=== PATIENT | female | born 1960 | race Caucasian/White ===

== ENCOUNTER → 2017-12-10 12:20 | Outpatient (CLI) | payer OTHER, SELFPAY ==
[2017-12-10 12:50] LABS: Add Manual Diff / Slide Review NO; Basophils Percent Auto 0.7 % (0-2); Eosinophils Percent Auto 3.4 % (2-4); Hematocrit 38.2 % (36-46); Hemoglobin 13.2 g/dL (12.0-16.0); Lymphocytes Percent Auto 29.1 % (25-40); Mean Corpuscular HGB Conc 34.5 % (30-36); Mean Corpuscular Hemoglobin 30.4 PG (26-34); Mean Corpuscular Volume 88.2 fL (80-100); Monocytes Percent Auto 10.2 % (3-14); Neutrophils Absolute Auto 3800 /uL (3000-5900); Neutrophils Percent Auto 56.6 % (50-75); Platelet Count 303 X10^3/uL (150-400); Red Blood Cell Count 4.33 X10^6/uL (4.0-5.2); Red Cell Distribution Width 12.6 % (11.6-14.8); White Blood Cell Count 6.6 X10^3/uL (4.5-11.0)
[2017-12-10 13:06] LABS: Alanine Aminotransferase 34 IU/L (9-52); Albumin 4.5 g/dL (3.5-5.0); Albumin Globulin Ratio 1.5 (1.0-2.8); Alkaline Phosphatase 69 U/L (38-126); Aspartate Aminotransferase 23 IU/L (14-36); BUN Creatinine Ratio 24.3 (6-22); Bilirubin Total 0.7 mg/dL (0.2-1.3); Blood Urea Nitrogen 17 mg/dL (7-17); Calcium 9.6 mg/dL (8.4-10.2); Carbon Dioxide 26 mmol/L (22-32); Chloride 107 mmol/L (98-107); Cholesterol 184 mg/dL (140-199); Estimated Glomerular Filt Rate > 60.0 mL/min (>60); Globulin 3.1 g/dL (1.7-4.1); Glucose 119 mg/dL (70-100); HDL Cholesterol 40 mg/dL (40-60); HEMOLYSIS < 15 (0-50); LDL Cholesterol Calculated 105 mg/dL (<100); Potassium 4.1 mmol/L (3.4-5.1); Sodium 145 mmol/L (137-145); Total Protein 7.6 g/dL (6.3-8.2); Triglycerides 194 mg/dL (35-150)
[2017-12-10 13:09] LABS: Hemoglobin A1C% w Est Avg Glu 5.8 % (4.0-6.0)
[2017-12-10 13:48] LABS: Thyroid Stimulating Hormone < 0.02 uIU/mL (0.47-4.68)
[2017-12-10 14:10] LABS: Creatinine Urine Random 51.2 mg/dL
[2017-12-10 14:18] LABS: Microalbumi Creatinin Ratio Ur 11.7 ug/mg CR (<30); Microalbumin Urine Random < 0.6 mg/dL (0-1.6)
== END ==
PROVIDERS: Family Provider Physician Assistant; PCP Physician Assistant; Visit Provider Physician Assistant
DX: I10 Essential (primary) hypertension (principal); E78.5 Hyperlipidemia, unspecified; E11.9 Type 2 diabetes mellitus without complications; E03.9 Hypothyroidism, unspecified
CPT/HCPCS: 36415; 80053; 80061; 82043; 82570; 83036; 84439; 84443; 85025

== ENCOUNTER → 2017-12-16 14:18 | Outpatient (CLI) | payer OTHER, SELFPAY ==
--- NOTE | 2017-12-16 | DI.MG.S_ITS ---
BILATERAL DIGITAL SCREENING MAMMOGRAM 3D/2D WITH CAD: 12/16/2017 CLINICAL: Routine screening. Comparison is made to exams dated: 11/26/2016 mammogram, 09/19/2015 mammogram, and 09/11/2014 mammogram - [facility]. There are scattered fibroglandular elements in both breasts. Current study was also evaluated with a Computer Aided Detection (CAD) system. There is architectural distortion in the right breast at 11 o'clock middle depth. No other significant masses, calcifications, or other findings are seen in either breast. IMPRESSION: INCOMPLETE: NEEDS ADDITIONAL IMAGING EVALUATION The architectural distortion in the right breast is indeterminate. Additional views with possible ultrasound are recommended. This exam was interpreted at Station ID: [id number]. NOTE: For mammograms, a report in lay terms will be sent to the patient. Approximately 15% of breast malignancies will not be visualized mammographically. In the management of a palpable breast mass, a negative mammogram must not discourage biopsy of a clinically suspicious lesion. Electronically Signed By: Joy cross/igor:12/16/2017 15:10:13 letter sent: Additional Imaging Needed ACR BI-RADS Category 0: Incomplete 3340F
== END ==
PROVIDERS: Family Provider Physician Assistant; PCP Physician Assistant; Visit Provider Physician Assistant
DX: Z12.31 Encounter for screening mammogram for malignant neoplasm of breast (principal)
CPT/HCPCS: 77063; 77067

== ENCOUNTER → 2018-01-13 10:00 | Outpatient (CLI) | payer OTHER, SELFPAY ==
--- NOTE | 2018-01-13 | DI.MG.S_ITS ---
UNILATERAL RIGHT DIGITAL DIAGNOSTIC MAMMOGRAM 3D/2D WITH ADDITIONAL VIEWS: 01/13/2018 CLINICAL: Additional evaluation requested from prior study. Comparison is made to exams dated: 12/16/2017 mammogram, 11/26/2016 mammogram, and 09/19/2015 mammogram - [facility]. There are scattered fibroglandular elements in right breast. Previously identified architectural distortion in the right breast at 11 o'clock middle depth on comparison screening mammograms persists with additional views. There is a stable 2.0 cm oval circumscribed mass in lower inner right breast at middle depth. No other significant masses, calcifications, or other findings are seen in the breast. IMPRESSION: INCOMPLETE: NEEDS ADDITIONAL IMAGING EVALUATION Previously identified architectural distortion in the right breast at 11 o'clock middle depth on comparison screening mammograms persists with additional views. A targeted ultrasound is recommended for further evaluation, and will be performed immediately following this exam. This exam was interpreted at Station ID: [id number]. NOTE: For mammograms, a report in lay terms will be sent to the patient. Approximately 15% of breast malignancies will not be visualized mammographically. In the management of a palpable breast mass, a negative mammogram must not discourage biopsy of a clinically suspicious lesion. Electronically Signed By: Luther Tadeo M.D. ecl/:01/13/2018 10:57:19 letter sent: Additional Imaging Needed ACR BI-RADS Category 0: Incomplete 3340F
--- NOTE | 2018-01-13 10:02 | DI.US.S_ITS ---
LIMITED ULTRASOUND OF RIGHT BREAST: 01/13/2018 CLINICAL: Patient returns today to evaluate an architectural distortion in the right breast. Comparison is made to exams dated: 01/13/2018 mammogram, 12/16/2017 mammogram, 11/26/2016 mammogram, 09/19/2015 mammogram, and 09/11/2014 mammogram - . Targeted real-time grayscale and Doppler ultrasound of the right breast upper outer quadrant was performed. There is no ultraasound mass or abnormality to correlate with the previously identified architectural distortion in the right breast at 11 o'clock middle depth on comparison screening mammograms that persisted with additional views. IMPRESSION: SUSPICIOUS OF MALIGNANCY No ultrasound correlate identified for the 3.0 cm area of architectual distortion in the right breast at 11 o'clock position middle depth. This is at intermediate suspicion for malignancy. As there is no ultrasound correlate, a stereotactic biopsy is recommended. These results and recommendations were discussed with the patient at the time of the exam by the Radiologist Dr. Feliz Simpson in person. This exam was interpreted at Station ID: [id number]. Electronically Signed By: Luther Tadeo M.D. ecl/:01/13/2018 11:01:47 letter sent: Biopsy Required Ultrasound BI-RADS: 4b Suspicious abnormality - intermediate suspicion of malignancy
== END ==
PROVIDERS: Family Provider Physician Assistant; PCP Physician Assistant; Visit Provider Physician Assistant
DX: R92.8 Other abnormal and inconclusive findings on diagnostic imaging of breast (principal); N63.11 Unspecified lump in the right breast, upper outer quadrant
CPT/HCPCS: 76642; 77065; G0279

== ENCOUNTER → 2018-01-20 15:19 | Outpatient (CLI) | payer OTHER, SELFPAY ==
[2018-01-20 16:54] LABS: Thyroid Stimulating Hormone 0.05 uIU/mL (0.47-4.68)
== END ==
PROVIDERS: PCP Physician Assistant; Visit Provider Physician Assistant
DX: E03.9 Hypothyroidism, unspecified (principal)
CPT/HCPCS: 36415; 84443

== ENCOUNTER → 2018-03-06 16:29 | Outpatient (CLI) | payer OTHER, SELFPAY | PROVIDERS: Family Provider Physician Assistant; PCP Physician Assistant; Visit Provider Physician Assistant | DX: E03.9 Hypothyroidism, unspecified (principal); R79.89 Other specified abnormal findings of blood chemistry | CPT/HCPCS: 36415; 84443 ==

== ENCOUNTER → 2018-07-12 14:43 | Outpatient (CLI) | payer OTHER, SELFPAY ==
--- NOTE | 2018-07-12 14:45 | DI.US.S_ITS ---
ULTRASOUND OF RIGHT BREAST: 07/12/2018 CLINICAL: 6 month follow-up of the right breast. Comparison is made to exams dated: 07/12/2018 mammogram, 01/13/2018 ultrasound, 01/13/2018 mammogram, 12/16/2017 mammogram, 11/26/2016 mammogram, and 09/19/2015 mammogram - [facility]. Color flow ultrasound of the right breast was performed on the areas of interest. Henriquez scale images of the real-time examination were reviewed. IMPRESSION: PROBABLY BENIGN There is no sonographic abnormality seen in the right breast to correspond with the possible architectural distortion in the upper outer quadrant. A follow-up right mammogram and an ultrasound in 6 months is recommended to demonstrate stability. This exam was interpreted at Station ID: [id number]. Electronically Signed By: Joy cross/:07/12/2018 16:53:29 letter sent: Followup Recommended Ultrasound BI-RADS: 3 Probably benign
--- NOTE | 2018-07-12 14:45 | DI.MG.S_ITS ---
UNILATERAL RIGHT DIGITAL DIAGNOSTIC MAMMOGRAM 3D/2D SHORT-TERM FOLLOW-UP: 07/12/2018 CLINICAL: Patient returns for a 6 month follow up of the right breast. Comparison is made to exams dated: 01/13/2018 mammogram, 12/16/2017 mammogram, and 11/26/2016 mammogram - [facility]. There are scattered fibroglandular elements in right breast. The architectural distortion in the right breast at 11 o'clock middle depth is unchanged when compared with the prior mammograms dated 12/16/17 and 01/13/18. No other significant masses or calcifications are seen in the breast. IMPRESSION: INCOMPLETE: NEEDS ADDITIONAL IMAGING EVALUATION The stable architectural distortion in the right breast is indeterminate. A targeted ultrasound of the right breast is recommended and will be performed immediately following this exam. This exam was interpreted at Station ID: [id number]. NOTE: For mammograms, a report in lay terms will be sent to the patient. Approximately 15% of breast malignancies will not be visualized mammographically. In the management of a palpable breast mass, a negative mammogram must not discourage biopsy of a clinically suspicious lesion. Electronically Signed By: Joy Pierce M.D. lk/:07/12/2018 16:49:34 ACR BI-RADS Category 0: Incomplete 3340F
== END ==
PROVIDERS: Family Provider Physician Assistant; PCP Physician Assistant; Visit Provider Family Medicine
DX: R92.8 Other abnormal and inconclusive findings on diagnostic imaging of breast (principal)
CPT/HCPCS: 76642; 77065; G0279

== ENCOUNTER → 2019-01-19 10:32 | Outpatient (CLI) | payer OTHER, SELFPAY ==
[2019-01-19 11:10] LABS: Hemoglobin A1C% w Est Avg Glu 5.9 % (4.0-6.0)
[2019-01-19 11:17] LABS: Alanine Aminotransferase 30 IU/L (<35); Albumin Globulin Ratio 1.7 (1.0-2.8); Alkaline Phosphatase 67 U/L (38-126); Aspartate Aminotransferase 31 IU/L (14-36); Bilirubin Total 0.9 mg/dL (0.2-1.3); Blood Urea Nitrogen 21 mg/dL (7-17); Calcium 9.8 mg/dL (8.4-10.2); Carbon Dioxide 24 mmol/L (22-32); Chloride 103 mmol/L (98-107); Cholesterol 218 mg/dL (140-199); Estimated Glomerular Filt Rate > 60.0 mL/min (>60); Glucose 137 mg/dL (70-100); HDL Cholesterol 41 mg/dL (40-60); HEMOLYSIS < 15 (0-50); LDL Cholesterol Calculated 131 mg/dL (<100); Potassium 4.1 mmol/L (3.4-5.1); Sodium 140 mmol/L (137-145); Triglycerides 229 mg/dL (35-150)
[2019-01-19 12:03] LABS: Thyroid Stimulating Hormone 4.15 uIU/mL (0.47-4.68)
[2019-01-19 14:10] LABS: Creatinine Urine Random 72.3 mg/dL
[2019-01-19 14:15] LABS: Microalbumi Creatinin Ratio Ur 8.2 ug/mg CR (<30); Microalbumin Urine Random < 0.6 mg/dL (0-1.6)
== END ==
PROVIDERS: PCP Physician Assistant; Visit Provider Physician Assistant
DX: E03.9 Hypothyroidism, unspecified (principal); E78.5 Hyperlipidemia, unspecified; I10 Essential (primary) hypertension; R73.01 Impaired fasting glucose
CPT/HCPCS: 36415; 80053; 80061; 82043; 82570; 83036; 84443

== ENCOUNTER → 2019-02-09 10:13 | Outpatient (CLI) | payer OTHER, SELFPAY ==
--- NOTE | 2019-02-09 10:14 | DI.US.S_ITS ---
LIMITED ULTRASOUND OF RIGHT BREAST: 02/09/2019 CLINICAL: 6 month follow-up. Comparison is made to exams dated: 02/09/2019 mammogram, 07/12/2018 ultrasound, 07/12/2018 mammogram, 01/13/2018 ultrasound, and 01/13/2018 mammogram - . Color flow and real-time ultrasound of the right breast upper outer quadrant were performed. Henriquez scale images of the real-time examination were reviewed. There is no ultrasound mass or abnormality to correlate with the previously identified architectural distortion in the right breast at 11 o'clock middle depth described on comparison mammograms dating back to at least 12/16/17. IMPRESSION: PROBABLY BENIGN There is no ultrasound mass or abnormality to correlate with the previously identified architectural distortion in the right breast at 11 o'clock middle depth described on comparison mammograms dating back to at least 12/16/17. A follow-up diagnostic mammogram (with possible ultrasound if indicated) in 6 months is recommended to demonstrate continued stability. The patient is advised to monitor her breasts and to return sooner for re-evaluation should she feel anything grow or change. This exam was interpreted at Station ID: [id number]. Electronically Signed By: Luther Tadeo M.D. ecl/:02/09/2019 15:01:40 letter sent: Followup Recommended Ultrasound BI-RADS: 3 Probably benign
--- NOTE | 2019-02-09 10:14 | DI.MG.S_ITS ---
BILATERAL DIGITAL DIAGNOSTIC MAMMOGRAM 3D/2D SHORT-TERM FOLLOW-UP: 02/09/2019 CLINICAL: Patient returns for 12 month follow up of right breast, due for bilateral exam. Comparison is made to exams dated: 07/12/2018 mammogram, 01/13/2018 mammogram, and 12/16/2017 mammogram - [facility]. There are scattered fibroglandular elements in both breasts. Previously identified architectural distortion in the right breast at 11 o'clock middle depth remains stable in appearance when compared with prior comparison mammograms of 07/12/18, 01/13/18, and 12/16/17. There is a 2.0 cm oval circumscribed mass in lower inner right breast at middle depth which remains stable in appearance when compared with prior comparison mammograms dating back to at least 08/06/11, compatible with benignity. No other significant masses, calcifications, or other findings are seen in either breast. IMPRESSION: INCOMPLETE: NEEDS ADDITIONAL IMAGING EVALUATION Previously identified architectural distortion in the right breast at 11 o'clock middle depth remains stable in appearance when compared with prior comparison mammograms of 07/12/18, 01/13/18, and 12/16/17. A targeted ultrasound is recommended for further evaluation, and will be performed immediately following this exam. This exam was interpreted at Station ID: [id number]. NOTE: For mammograms, a report in lay terms will be sent to the patient. Approximately 15% of breast malignancies will not be visualized mammographically. In the management of a palpable breast mass, a negative mammogram must not discourage biopsy of a clinically suspicious lesion. Electronically Signed By: Luther Tadeo M.D. ecl/:02/09/2019 14:58:52 ACR BI-RADS Category 0: Incomplete 3340F
== END ==
PROVIDERS: PCP Physician Assistant; Visit Provider Physician Assistant
DX: R92.8 Other abnormal and inconclusive findings on diagnostic imaging of breast (principal); N63.11 Unspecified lump in the right breast, upper outer quadrant
CPT/HCPCS: 76642; 77066; G0279

== ENCOUNTER → 2019-03-02 11:01 | Outpatient (CLI) | payer OTHER, SELFPAY ==
[2019-03-02 12:41] LABS: Cholesterol 210 mg/dL (140-199); HDL Cholesterol 44 mg/dL (40-60); LDL Cholesterol Calculated 132 mg/dL (<100); Triglycerides 172 mg/dL (35-150)
== END ==
PROVIDERS: PCP Physician Assistant; Visit Provider Physician Assistant
DX: E03.9 Hypothyroidism, unspecified (principal); E78.5 Hyperlipidemia, unspecified
CPT/HCPCS: 36415; 80061; 84443

== ENCOUNTER → 2019-04-13 11:05 | Outpatient (CLI) | payer OTHER, SELFPAY ==
[2019-04-13 12:02] LABS: Alanine Aminotransferase 22 IU/L (<35); Albumin 4.8 g/dL (3.5-5.0); Albumin Globulin Ratio 1.7 (1.0-2.8); Alkaline Phosphatase 79 U/L (38-126); Aspartate Aminotransferase 24 IU/L (14-36); BUN Creatinine Ratio 28.3 (6-22); Bilirubin Total 0.9 mg/dL (0.2-1.3); Blood Urea Nitrogen 17 mg/dL (7-17); Calcium 10.1 mg/dL (8.4-10.2); Carbon Dioxide 22 mmol/L (22-32); Chloride 105 mmol/L (98-107); Cholesterol 120 mg/dL (140-199); Estimated Glomerular Filt Rate > 60.0 mL/min (>60); Globulin 2.9 g/dL (1.7-4.1); Glucose 144 mg/dL (70-100); HDL Cholesterol 45 mg/dL (40-60); HEMOLYSIS < 15 (0-50); LDL Cholesterol Calculated 40 mg/dL (<100); Potassium 4.2 mmol/L (3.4-5.1); Sodium 141 mmol/L (137-145); Total Protein 7.7 g/dL (6.3-8.2); Triglycerides 177 mg/dL (35-150)
== END ==
PROVIDERS: PCP Physician Assistant; Visit Provider Physician Assistant
DX: E78.2 Mixed hyperlipidemia (principal); Z51.81 Encounter for therapeutic drug level monitoring
CPT/HCPCS: 36415; 80053; 80061

== ENCOUNTER → 2019-05-25 12:06 | Outpatient (CLI) | payer OTHER, SELFPAY ==
--- NOTE | 2019-05-25 12:07 | DI.US.S_ITS ---
PROCEDURE: US PELVIC COMPLETE INDICATIONS: RIGHT LOWER QUADRANT PAIN TECHNIQUE: Real-time scanning was performed of the pelvic organs, with image documentation. Additional endovaginal scanning was necessary due to incomplete visualization of the adnexal and endometrial structures by transabdominal scanning. COMPARISON: [facility], , PELVIC COMPLETE, 06/27/2009, 12:35. FINDINGS: Transabdominal scanning: Limited scanning through the kidneys shows no hydronephrosis. No pathologic free abdominal or pelvic fluid. Endovaginal scanning: Uterus: Uterus is normal in size at 6.0 x 3.1 x 4.1 cm. The endometrium measures 3.4 mm in combined thickness. Small amount endometrial fluid and small polypoid echogenic endometrial focus measuring 5 mm. 2 intramural fibroids, largest measuring up to 1.1 cm. 10 mm submucosal fibroid present. Ovaries: Right ovary not visualized. Normal left ovary measured 2.6 x 2.0 x 1.4 cm. IMPRESSION: 1. 5 mm echogenic focus above and endometrial complex with small amount fluid. Small polypoid mass cannot be excluded and follow up ultrasound in 6 weeks recommended to assess for interval resolution. If the mass persists, recommend gynecologic consultation. 2. 3 small fibroids. Dictated by: Raymond GARCIA Interpreted: Sherrie Coto MD on 05/25/2019 at 16:52 Approved by: Feliz Simpson M.D. on 05/28/2019 at 15:58
--- NOTE | 2019-05-25 12:07 | DI.US.S_ITS ---
PROCEDURE: US ABDOMEN COMPLETE INDICATIONS: RIGHT LOWER QUADRANT PAIN TECHNIQUE: Real-time scanning was performed of the abdominal and retroperitoneal organs, with image documentation. COMPARISON: [facility], US, US PELVIC COMPLETE, 05/25/2019, 12:27. FINDINGS: Liver: Liver is diffusely increased in echogenicity. No focal hepatic abnormalities identified. Normal hepatic size. Gallbladder: No gallstones identified. Normal gallbladder wall. No pericholecystic fluid. Negative sonographic Reeder sign. Biliary ducts: Intrahepatic bile ducts are non-dilated. Extrahepatic bile duct caliber measures 4.4 mm. Normal is 6-7 mm or less in diameter, or 10 mm or less post-cholecystectomy. Pancreas: Not well-visualized. Spleen: Spleen is normal in size and homogeneous in echotexture. Kidneys: Kidneys are normal in size and echotexture. Right kidney measures 12.0 cm long; left kidney measures 11.9 cm long. No hydronephrosis or nephrolithiasis. No solid masses. Aorta: Visualized aorta is normal in caliber at less than 3 cm. Iliacs: Proximal common iliac arteries are normal in caliber at less than 2.5 cm. IVC: Intrahepatic inferior vena cava is patent. Miscellaneous: No free abdominal fluid. IMPRESSION: Increased hepatic echogenicity noted possibly related to hepatic steatosis but other sources of hepatocellular disease cannot be excluded. Recommend clinical correlation. Dictated by: Raymond GARCIA Interpreted: Sherrie Coto MD on 05/25/2019 at 16:50 Approved by: Feliz Simpson M.D. on 05/28/2019 at 15:57
== END ==
PROVIDERS: PCP Physician Assistant; Referring Provider Physician Assistant; Visit Provider Physician Assistant
DX: R10.31 Right lower quadrant pain (principal)
CPT/HCPCS: 76700; 76830; 76856

== ENCOUNTER → 2019-07-13 10:59 | Outpatient (CLI) | payer OTHER, SELFPAY ==
--- NOTE | 2019-07-13 11:00 | DI.US.S_ITS ---
PROCEDURE: US PELVIC COMPLETE INDICATIONS: 6 WEEK F/U ON POSSIBLE ENDOMETRIAL POLYP TECHNIQUE: Real-time scanning was performed of the pelvic organs, with image documentation. Additional endovaginal scanning was necessary due to incomplete visualization of the adnexal and endometrial structures by transabdominal scanning. COMPARISON: [facility], , US PELVIC COMPLETE, 05/25/2019, 12:27. FINDINGS: Transabdominal scanning: Limited scanning through the kidneys shows no hydronephrosis. No pathologic free abdominal or pelvic fluid. Endovaginal scanning: Uterus: Uterus is normal in size at 6.6 x 3.0 x 3.8 cm. The endometrium measures 2.2 mm in combined thickness. Endometrium is poorly visualized on the current study. Previously identified 5 mm echogenic focus is not significantly changed compared to the prior examination.. Ovaries: Right ovary measures 2.2 x 1.2 x 1.4 cm and is sonographically normal. Left ovary measures 2.8 x 1.4 x 1.6 cm and is sonographically normal. IMPRESSION: 1. Persistent 5 mm echogenic focus in the uterus. Recommend gynecologic consultation and pelvic MRI if clinically indicated.. 2. Stable uterine fibroids. 3. Ovaries are sonographically normal. Dictated by: Carina Bryan MD, PhD on 07/13/2019 at 16:29 Approved by: Carina Bryan MD, PhD on 07/13/2019 at 16:34
== END ==
PROVIDERS: Referring Provider Physician Assistant; Visit Provider Physician Assistant
DX: N84.0 Polyp of corpus uteri (principal); D25.9 Leiomyoma of uterus, unspecified
CPT/HCPCS: 76830; 76856

== ENCOUNTER → 2019-08-24 09:23 | Outpatient (CLI) | payer OTHER, SELFPAY ==
--- NOTE | 2019-08-24 09:24 | DI.MG.S_ITS ---
UNILATERAL RIGHT DIGITAL DIAGNOSTIC MAMMOGRAM 3D/2D SHORT-TERM FOLLOW-UP: 08/24/2019 CLINICAL: Short term follow up. Comparison is made to exams dated: 02/09/2019 ultrasound, 02/09/2019 mammogram, 07/12/2018 ultrasound, 07/12/2018 mammogram, 01/13/2018 ultrasound, and 01/13/2018 mammogram - [facility]. There are scattered fibroglandular elements in right breast. There is irregular equal density architectural distortion with an indistinct margin in the right breast at 9 o'clock middle depth. This is not significantly changed. No other significant masses or calcifications are seen in the breast. IMPRESSION: PROBABLY BENIGN The irregular equal density architectural distortion in the right breast is probably benign. A follow-up mammogram in 6 months is recommended. A follow-up mammogram in 6 months is recommended to demonstrate 2 year stability. Patient will also be due for screening mammography of the contralateral left breast at that time. This exam was interpreted at Station ID: [id number]. NOTE: For mammograms, a report in lay terms will be sent to the patient. Approximately 15% of breast malignancies will not be visualized mammographically. In the management of a palpable breast mass, a negative mammogram must not discourage biopsy of a clinically suspicious lesion. Electronically Signed By: Trevon campos/:08/24/2019 09:57:49 letter sent: Followup Recommended ACR BI-RADS Category 3: Probably benign 3343F
== END ==
PROVIDERS: Referring Provider Physician Assistant; Visit Provider Physician Assistant
DX: R92.8 Other abnormal and inconclusive findings on diagnostic imaging of breast (principal); N64.89 Other specified disorders of breast
CPT/HCPCS: 77065; G0279

== ENCOUNTER → 2019-12-12 15:32 | Outpatient (CLI) | payer OTHER, SELFPAY ==
--- NOTE | 2019-12-12 15:33 | DI.RAD.S_ITS ---
PROCEDURE: XR KNEE LT 3V INDICATIONS: Left knee pain TECHNIQUE: 3 views of the knee were acquired. COMPARISON: None. FINDINGS: Bones: No fractures or dislocations. No suspicious bony lesions. Mild narrowing of the medial femoral tibial joint and tricompartmental periarticular osteophyte formation. Soft tissues: No joint effusion. No suspicious soft tissue calcifications. 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 Dictated by: Raymond Nielsen [facility] Interpreted: Jules Marshall MD on 12/12/2019 at 16:37 Approved by: Jules Marshall M.D. on 12/12/2019 at 17:01
== END ==
PROVIDERS: PCP Registered Nurse Diabetes Educator; Referring Provider Registered Nurse Diabetes Educator; Visit Provider Registered Nurse Diabetes Educator
DX: M25.562 Pain in left knee (principal); M17.12 Unilateral primary osteoarthritis, left knee
CPT/HCPCS: 73562

== ENCOUNTER → 2020-02-09 12:35 | Outpatient (CLI) | payer OTHER, SELFPAY ==
[2020-02-09 13:07] LABS: Add Manual Diff / Slide Review NO; Basophils Absolute Auto 0 /uL (0-100); Basophils Percent Auto 0.7 % (0-2); Eosinophils Absolute Auto 200 /uL (0-450); Eosinophils Percent Auto 3.7 % (2-4); Hematocrit 41.3 % (36-46); Hemoglobin 13.9 g/dL (12.0-16.0); Lymphocytes Absolute Auto 2000 /uL (1100-4500); Lymphocytes Percent Auto 30.2 % (25-40); Mean Corpuscular HGB Conc 33.8 % (30-36); Mean Corpuscular Hemoglobin 29.9 PG (26-34); Mean Corpuscular Volume 88.5 fL (80-100); Monocytes Absolute Auto 600 /uL (0-900); Monocytes Percent Auto 9.3 % (3-14); Neutrophils Absolute Auto 3700 /uL (1500-7000); Neutrophils Percent Auto 56.1 % (50-75); Platelet Count 262 X10^3/uL (150-400); Red Blood Cell Count 4.66 X10^6/uL (4.0-5.2); Red Cell Distribution Width 13.3 % (11.6-14.8); White Blood Cell Count 6.6 X10^3/uL (4.5-11.0)
[2020-02-09 13:15] LABS: Creatinine Urine Random 90.3 mg/dL
[2020-02-09 13:20] LABS: Hemoglobin A1C% w Est Avg Glu 8.2 % (4.0-6.0)
[2020-02-09 13:20] LABS: Microalbumi Creatinin Ratio Ur 14.3 ug/mg CR (<30); Microalbumin Urine Random 1.3 mg/dL (0-1.6)
[2020-02-09 13:26] LABS: Alanine Aminotransferase 34 IU/L (<35); Albumin 4.4 g/dL (3.5-5.0); Albumin Globulin Ratio 1.4 (1.0-2.8); Alkaline Phosphatase 77 U/L (38-126); Aspartate Aminotransferase 31 IU/L (14-36); BUN Creatinine Ratio 21.5 (6-22); Bilirubin Total 1.1 mg/dL (0.2-1.3); Blood Urea Nitrogen 14 mg/dL (7-17); Calcium 9.5 mg/dL (8.4-10.2); Carbon Dioxide 27 mmol/L (22-32); Chloride 105 mmol/L (98-107); Cholesterol 131 mg/dL (140-199); Estimated Glomerular Filt Rate > 60.0 mL/min (>60); Globulin 3.2 g/dL (1.7-4.1); Glucose 173 mg/dL (70-100); HDL Cholesterol 40 mg/dL (40-60); HEMOLYSIS < 15 (0-50); LDL Cholesterol Calculated 47 mg/dL (<100); Potassium 3.9 mmol/L (3.4-5.1); Sodium 138 mmol/L (137-145); Total Protein 7.6 g/dL (6.3-8.2); Triglycerides 218 mg/dL (35-150)
[2020-02-09 13:58] LABS: TSH w/ Reflex to FT4 1.53 uIU/mL (0.47-4.68)
== END ==
PROVIDERS: PCP Registered Nurse Diabetes Educator; Referring Provider Registered Nurse Diabetes Educator; Visit Provider Registered Nurse Diabetes Educator
DX: E03.9 Hypothyroidism, unspecified (principal); E11.9 Type 2 diabetes mellitus without complications; E78.2 Mixed hyperlipidemia; I10 Essential (primary) hypertension
CPT/HCPCS: 36415; 80053; 80061; 82043; 82570; 83036; 84443; 85025

== ENCOUNTER → 2020-03-07 14:09 | Outpatient (CLI) | payer OTHER, SELFPAY ==
--- NOTE | 2020-03-07 14:10 | DI.US.S_ITS ---
PROCEDURE: US PELVIC COMPLETE INDICATIONS: SIX MONTH FOLLOW UP TECHNIQUE: Real-time scanning was performed of the pelvic organs, with image documentation. Additional endovaginal scanning was necessary due to incomplete visualization of the adnexal and endometrial structures by transabdominal scanning. COMPARISON: [facility], , US PELVIC COMPLETE, 05/25/2019, 12:27. FINDINGS: Transabdominal scanning: Limited scanning through the kidneys shows no hydronephrosis. No pathologic free abdominal or pelvic fluid. Endovaginal scanning: Uterus: Uterus is normal in size at 8.2 x 2.6 x 3.5 cm. The endometrium measures 3.2 mm in combined thickness. A small amount of fluid is present within the endometrial cavity. A possible polyp is identified measuring 4 x 2 x 4 mm. A 1.1 x 0.4 x 0.7 cm hyperechoic focus is noted in anterior myometrium, probably calcified fibroid. A 9 x 6 x 8 mm intramural fibroid is seen in the right side of uterine fundus. A 9 x 8 x 13 mm fibroid is seen in the posterior medial wall. Ovaries: Right ovary measures 2.0 x 1.2 x 1.4 cm and demonstrates normal echotexture. Left ovary measures 3.0 x 1.5 x 1.7 cm. There is a complex cyst with debris measuring 1.2 x 1.3 x 1.1 cm. IMPRESSION: 1. Question of a small endometrial polyp measuring 4 x 2 x 4 mm. If clinically indicated, saline hystosonographically may be helpful. 2. Myomatous uterus with multiple small uterine fibroids. 3. Small amount of fluid within the endometrial cavity is present. Endometrium is overall normal in thickness. Dictated by: Lindsey Vega M.D. on 03/07/2020 at 17:07 Approved by: Lindsey Vega M.D. on 03/07/2020 at 17:15
--- NOTE | 2020-03-07 14:10 | DI.MG.S_ITS ---
BILATERAL DIGITAL DIAGNOSTIC MAMMOGRAM 3D/2D SHORT-TERM FOLLOW-UP: 03/07/2020 CLINICAL: Patient returns for a 24 month follow up of the right breast, due for bilateral exam. Comparison is made to exams dated: 08/24/2019 mammogram, 07/12/2018 mammogram, 01/13/2018 mammogram, and 12/16/2017 mammogram - [facility]. There are scattered fibroglandular elements in both breasts. Redemonstration of previously described irregular equal density architectural distortion with an indistinct margin in the right breast at 9 o'clock middle depth. This is not significantly changed over two years, and was not seen on the prior ultrasounds. No other significant masses, calcifications, or other findings are seen in either breast. IMPRESSION: BENIGN There is no mammographic evidence of malignancy. Return to annual mammogram screening schedule is recommended. Findings and recommendations were conveyed to the patient during today's evaluation. This exam was interpreted at Station ID: [id number]. NOTE: For mammograms, a report in lay terms will be sent to the patient. Approximately 15% of breast malignancies will not be visualized mammographically. In the management of a palpable breast mass, a negative mammogram must not discourage biopsy of a clinically suspicious lesion. Electronically Signed By: Ori Ambrose M.D. aty/:03/07/2020 15:17:08 letter sent: Normal Exam ACR BI-RADS Category 2: Benign Finding(s) 3342F
== END ==
PROVIDERS: PCP Registered Nurse Diabetes Educator; Referring Provider Registered Nurse Diabetes Educator; Visit Provider Registered Nurse Diabetes Educator
DX: R92.8 Other abnormal and inconclusive findings on diagnostic imaging of breast (principal); N84.0 Polyp of corpus uteri; D25.1 Intramural leiomyoma of uterus; N83.292 Other ovarian cyst, left side
CPT/HCPCS: 76830; 76856; 77066; G0279

== ENCOUNTER → 2021-02-26 11:59 | Outpatient (CLI) | payer OTHER, SELFPAY ==
[2021-02-26 13:23] LABS: Hematocrit 37.9 % (36-46); Hemoglobin 13.1 g/dL (12.0-16.0); Mean Corpuscular HGB Conc 34.5 % (30-36); Mean Corpuscular Volume 86.9 fL (80-100); Platelet Count 319 X10^3/uL (150-400); Red Blood Cell Count 4.36 X10^6/uL (4.0-5.2); Red Cell Distribution Width 12.7 % (11.6-14.8); White Blood Cell Count 7.6 X10^3/uL (4.5-11.0)
[2021-02-26 13:35] LABS: Hemoglobin A1C% w Est Avg Glu 8.1 % (4.0-6.0)
[2021-02-26 13:40] LABS: Alanine Aminotransferase 29 IU/L (<35); Albumin 4.7 g/dL (3.5-5.0); Albumin Globulin Ratio 1.6 (1.0-2.8); Alkaline Phosphatase 73 U/L (38-126); Aspartate Aminotransferase 26 IU/L (14-36); BUN Creatinine Ratio 21.9 (6-22); Bilirubin Total 0.9 mg/dL (0.2-1.3); Blood Urea Nitrogen 14 mg/dL (7-17); Calcium 9.6 mg/dL (8.4-10.2); Carbon Dioxide 23 mmol/L (22-32); Chloride 103 mmol/L (98-107); Cholesterol 127 mg/dL (140-199); Estimated Glomerular Filt Rate > 60.0 mL/min (>60); Globulin 2.9 g/dL (1.7-4.1); Glucose 227 mg/dL (70-100); HDL Cholesterol 41 mg/dL (40-60); HEMOLYSIS < 15 (0-50); LDL Cholesterol Calculated 50 mg/dL (<100); Sodium 138 mmol/L (137-145); Total Protein 7.6 g/dL (6.3-8.2); Triglycerides 182 mg/dL (35-150)
[2021-02-26 16:11] LABS: Creatinine Urine Random 40.4 mg/dL
[2021-02-26 16:43] LABS: Microalbumi Creatinin Ratio Ur 44.5 ug/mg CR (<30); Microalbumin Urine Random 1.8 mg/dL (0-1.6)
== END ==
PROVIDERS: PCP Registered Nurse Diabetes Educator; Referring Provider Registered Nurse Diabetes Educator; Visit Provider Registered Nurse Diabetes Educator
DX: E03.9 Hypothyroidism, unspecified (principal); E11.9 Type 2 diabetes mellitus without complications; E66.9 Obesity, unspecified; E78.2 Mixed hyperlipidemia; I10 Essential (primary) hypertension
CPT/HCPCS: 36415; 80053; 80061; 82043; 82570; 83036; 84443; 85027

== ENCOUNTER → 2021-03-27 15:45 | Outpatient (CLI) | payer OTHER, SELFPAY ==
--- NOTE | 2021-03-27 15:46 | DI.MG.S_ITS ---
BILATERAL DIGITAL SCREENING MAMMOGRAM 3D/2D WITH CAD: 03/27/2021 CLINICAL: Routine screening. Comparison is made to exams dated: 03/07/2020 mammogram, 02/09/2019 mammogram, 07/12/2018 mammogram, and 12/16/2017 mammogram - [facility]. There are scattered fibroglandular elements in both breasts. Current study was also evaluated with a Computer Aided Detection (CAD) system. There is a stable benign focal asymmetry in the right breast. No significant masses, calcifications, or other findings are seen in either breast. There has been no significant interval change. IMPRESSION: BENIGN There is no mammographic evidence of malignancy. A 1 year screening mammogram is recommended. This exam was interpreted at Station ID: [id number]. NOTE: For mammograms, a report in lay terms will be sent to the patient. Approximately 15% of breast malignancies will not be visualized mammographically. In the management of a palpable breast mass, a negative mammogram must not discourage biopsy of a clinically suspicious lesion. Electronically Signed By: Timi Wyatt acr/igor:03/27/2021 16:03:29 letter sent: Normal Exam ACR BI-RADS Category 2: Benign Finding(s) 3342F
== END ==
PROVIDERS: PCP Registered Nurse Diabetes Educator; Referring Provider Registered Nurse Diabetes Educator; Visit Provider Registered Nurse Diabetes Educator
DX: Z12.31 Encounter for screening mammogram for malignant neoplasm of breast (principal)
CPT/HCPCS: 77063; 77067

== ENCOUNTER → 2021-07-10 14:09 | Outpatient (CLI) | payer OTHER, SELFPAY ==
[2021-07-10 15:55] LABS: Creatinine Urine Random 65.4 mg/dL
[2021-07-10 15:58] LABS: Microalbumi Creatinin Ratio Ur 10.7 ug/mg CR (<30); Microalbumin Urine Random 0.7 mg/dL (0-1.6)
== END ==
PROVIDERS: PCP Registered Nurse Diabetes Educator; Referring Provider Registered Nurse Diabetes Educator; Visit Provider Registered Nurse Diabetes Educator
DX: E11.9 Type 2 diabetes mellitus without complications (principal); R80.9 Proteinuria, unspecified
CPT/HCPCS: 36415; 82043; 82570; 83036

== ENCOUNTER → 2021-09-24 14:30 | Outpatient (CLI) | payer OTHER, SELFPAY ==
[2021-09-24 15:43] LABS: Hemoglobin A1C% w Est Avg Glu 7.4 % (4.0-6.0)
== END ==
PROVIDERS: PCP Registered Nurse Diabetes Educator; Referring Provider Registered Nurse Diabetes Educator; Visit Provider Registered Nurse Diabetes Educator
DX: E11.9 Type 2 diabetes mellitus without complications (principal)
CPT/HCPCS: 36415; 83036

== ENCOUNTER → 2022-01-21 11:47 | Outpatient (CLI) | payer OTHER, SELFPAY ==
[2022-01-21 12:46] LABS: Hematocrit 38.1 % (36-46); Hemoglobin 12.9 g/dL (12.0-16.0); Mean Corpuscular HGB Conc 33.8 % (30-36); Mean Corpuscular Hemoglobin 29.4 PG (26-34); Mean Corpuscular Volume 86.8 fL (80-100); Platelet Count 303 X10^3/uL (150-400); Red Blood Cell Count 4.39 X10^6/uL (4.0-5.2); Red Cell Distribution Width 12.8 % (11.6-14.8); White Blood Cell Count 7.1 X10^3/uL (4.5-11.0)
[2022-01-21 13:09] LABS: Alanine Aminotransferase 30 IU/L (<35); Albumin 4.6 g/dL (3.5-5.0); Albumin Globulin Ratio 1.5 (1.0-2.8); Alkaline Phosphatase 63 U/L (38-126); Aspartate Aminotransferase 26 IU/L (14-36); BUN Creatinine Ratio 25.4 (6-22); Bilirubin Total 0.8 mg/dL (0.2-1.3); Blood Urea Nitrogen 16 mg/dL (7-17); Calcium 9.6 mg/dL (8.4-10.2); Carbon Dioxide 22 mmol/L (22-32); Chloride 104 mmol/L (98-107); Cholesterol 116 mg/dL (140-199); Estimated Glomerular Filt Rate > 60 mL/min (>60); Glucose 145 mg/dL (70-100); HDL Cholesterol 43 mg/dL (40-60); HEMOLYSIS < 15 (0-50); LDL Cholesterol Calculated 41 mg/dL (<100); Potassium 4.1 mmol/L (3.4-5.1); Sodium 140 mmol/L (137-145); Total Protein 7.6 g/dL (6.3-8.2); Triglycerides 158 mg/dL (35-150)
[2022-01-21 13:14] LABS: Hemoglobin A1C% w Est Avg Glu 6.6 % (4.0-6.0)
[2022-01-21 13:38] LABS: TSH w/ Reflex to FT4 1.44 uIU/mL (0.47-4.68)
[2022-01-21 14:23] LABS: Creatinine Urine Random 58.2 mg/dL
[2022-01-21 14:27] LABS: Microalbumi Creatinin Ratio Ur 15.4 ug/mg CR (<30); Microalbumin Urine Random 0.9 mg/dL (0-1.6)
== END ==
PROVIDERS: PCP Registered Nurse Diabetes Educator; Referring Provider Registered Nurse Diabetes Educator; Visit Provider Registered Nurse Diabetes Educator
DX: E03.9 Hypothyroidism, unspecified (principal); E11.9 Type 2 diabetes mellitus without complications; E78.2 Mixed hyperlipidemia; I10 Essential (primary) hypertension
CPT/HCPCS: 36415; 80053; 80061; 82043; 82570; 83036; 84443; 85027

== ENCOUNTER → 2022-05-12 14:30 | Outpatient (CLI) | payer OTHER, SELFPAY ==
--- NOTE | 2022-05-12 | DI.MG.S_ITS ---
BILATERAL DIGITAL SCREENING MAMMOGRAM 3D/2D WITH CAD: 05/12/2022 CLINICAL: Routine screening. Comparison is made to exams dated: 03/27/2021 mammogram, 03/07/2020 mammogram, and 02/09/2019 mammogram - [facility]. There are scattered areas of fibroglandular density in both breasts (category b / 25%-50% glandular tissue). Current study was also evaluated with a Computer Aided Detection (CAD) system. There is a stable benign focal asymmetry in the right breast. No significant masses, calcifications, or other findings are seen in either breast. There has been no significant interval change. IMPRESSION: BENIGN There is no mammographic evidence of malignancy. A 1 year screening mammogram is recommended. Based on the Tyrer Cuzick model (a risk assessment model) the patient's lifetime risk is 10.3% and her 10 year risk is 4.0%. According to the ACR, ACS, and NCCN guidelines, an annual breast MRI exam along with mammogram is recommended if the patient's lifetime risk is 20% or greater. This exam was interpreted at Station ID: [id number]. NOTE: For mammograms, a report in lay terms will be sent to the patient. Approximately 15% of breast malignancies will not be visualized mammographically. In the management of a palpable breast mass, a negative mammogram must not discourage biopsy of a clinically suspicious lesion. Electronically Signed By: Ori hale/igor:05/12/2022 16:56:13 letter sent: Normal Exam ACR BI-RADS Category 2: Benign Finding(s) 3342F
== END ==
PROVIDERS: PCP Registered Nurse Diabetes Educator; Referring Provider Registered Nurse Diabetes Educator; Visit Provider Registered Nurse Diabetes Educator
DX: Z12.31 Encounter for screening mammogram for malignant neoplasm of breast (principal)
CPT/HCPCS: 77063; 77067

== ENCOUNTER → 2023-03-17 11:09 | Outpatient (CLI) | payer OTHER, SELFPAY ==
[2023-03-17 12:21] LABS: Hematocrit 35.6 % (36-46); Hemoglobin 12.1 g/dL (12.0-16.0); Mean Corpuscular Volume 88.1 fL (80-100); Platelet Count 354 X10^3/uL (150-400); Red Blood Cell Count 4.04 X10^6/uL (4.0-5.2); Red Cell Distribution Width 12.9 % (11.6-14.8); White Blood Cell Count 8.5 X10^3/uL (4.5-11.0)
[2023-03-17 12:28] LABS: Creatinine Urine Random 63.7 mg/dL
[2023-03-17 12:33] LABS: Microalbumi Creatinin Ratio Ur 14.1 ug/mg CR (<30); Microalbumin Urine Random 0.9 mg/dL (0-1.6)
[2023-03-17 13:07] LABS: Hemoglobin A1C% w Est Avg Glu 6.8 % (4.0-6.0)
[2023-03-17 13:30] LABS: Alanine Aminotransferase 33 IU/L (<35); Albumin 4.5 g/dL (3.5-5.0); Albumin Globulin Ratio 1.6 (1.0-2.8); Alkaline Phosphatase 77 U/L (38-126); Aspartate Aminotransferase 29 IU/L (14-36); BUN Creatinine Ratio 25.4 (6-22); Bilirubin Total 0.8 mg/dL (0.2-1.3); Blood Urea Nitrogen 17 mg/dL (7-17); Calcium 10.2 mg/dL (8.4-10.2); Carbon Dioxide 23 mmol/L (22-32); Chloride 105 mmol/L (98-107); Cholesterol 121 mg/dL (140-199); Estimated Glomerular Filt Rate > 60 mL/min (>60); Globulin 2.9 g/dL (1.7-4.1); Glucose 181 mg/dL (80-110); HDL Cholesterol 45 mg/dL (40-60); HEMOLYSIS < 15 (0-50); LDL Cholesterol Calculated 41 mg/dL (<100); Potassium 4.3 mmol/L (3.4-5.1); Sodium 138 mmol/L (137-145); Total Protein 7.4 g/dL (6.3-8.2); Triglycerides 177 mg/dL (35-150)
[2023-03-17 13:41] LABS: TSH w/ Reflex to FT4 1.77 uIU/mL (0.47-4.68)
== END ==
PROVIDERS: PCP Registered Nurse Diabetes Educator; Referring Provider Registered Nurse Diabetes Educator; Visit Provider Registered Nurse Diabetes Educator
DX: E11.9 Type 2 diabetes mellitus without complications (principal); E03.9 Hypothyroidism, unspecified; E78.2 Mixed hyperlipidemia; I10 Essential (primary) hypertension
CPT/HCPCS: 36415; 80053; 80061; 82043; 82570; 83036; 84443; 85027

== ENCOUNTER → 2023-06-24 14:28 | Outpatient (CLI) | payer OTHER, SELFPAY ==
--- NOTE | 2023-06-24 | DI.MG.S_ITS ---
BILATERAL DIGITAL SCREENING MAMMOGRAM 3D/2D WITH CAD: 06/24/2023 CLINICAL: Routine screening. Comparison is made to exams dated: 05/12/2022 mammogram, 03/27/2021 mammogram, and 03/07/2020 mammogram - [facility]. There are scattered areas of fibroglandular density in both breasts (category b / 25%-50% glandular tissue). Current study was also evaluated with a Computer Aided Detection (CAD) system. There is a stable benign focal asymmetry in the right breast. No significant masses, calcifications, or other findings are seen in either breast. There has been no significant interval change. IMPRESSION: BENIGN There is no mammographic evidence of malignancy. A 1 year screening mammogram is recommended. Based on the Tyrer Cuzick model (a risk assessment model) the patient's lifetime risk is 9.8% and her 10 year risk is 4.1%. According to the ACR, ACS, and NCCN guidelines, an annual breast MRI exam along with mammogram is recommended if the patient's lifetime risk is 20% or greater. This exam was interpreted at Station ID: [id number]. NOTE: For mammograms, a report in lay terms will be sent to the patient. Approximately 15% of breast malignancies will not be visualized mammographically. In the management of a palpable breast mass, a negative mammogram must not discourage biopsy of a clinically suspicious lesion. Electronically Signed By: Serenity lira/igor:06/24/2023 16:37:04 letter sent: Normal Exam ACR BI-RADS Category 2: Benign Finding(s) 3342F
== END ==
PROVIDERS: PCP Registered Nurse Diabetes Educator; Referring Provider Registered Nurse Diabetes Educator; Visit Provider Registered Nurse Diabetes Educator
DX: Z12.31 Encounter for screening mammogram for malignant neoplasm of breast (principal); R92.323 Mammographic fibroglandular density, bilateral breasts
CPT/HCPCS: 77063; 77067

== ENCOUNTER → 2023-11-10 12:16 | Outpatient (CLI) | payer OTHER, SELFPAY ==
[2023-11-10 13:00] LABS: Hematocrit 35.3 % (36-46); Hemoglobin 12.1 g/dL (12.0-16.0); Mean Corpuscular HGB Conc 34.3 % (30-36); Mean Corpuscular Hemoglobin 30.2 PG (26-34); Mean Corpuscular Volume 88.1 fL (80-100); Platelet Count 266 X10^3/uL (150-400); Red Blood Cell Count 4.01 X10^6/uL (4.0-5.2); Red Cell Distribution Width 13.8 % (11.6-14.8); White Blood Cell Count 8.5 X10^3/uL (4.5-11.0)
[2023-11-10 13:14] LABS: Hemoglobin A1C% w Est Avg Glu 6.5 % (4.0-6.0)
== END ==
PROVIDERS: PCP Registered Nurse Diabetes Educator; Referring Provider Registered Nurse Diabetes Educator; Visit Provider Registered Nurse Diabetes Educator
DX: D64.9 Anemia, unspecified (principal); E11.9 Type 2 diabetes mellitus without complications
CPT/HCPCS: 36415; 83036; 85027

== ENCOUNTER → 2024-03-10 12:52 | Outpatient (CLI) | payer OTHER, SELFPAY ==
[2024-03-10 13:11] LABS: Appearance Urine UA CLEAR; Bilirubin Urine UA NEGATIVE (NEGATIVE); Color Urine UA YELLOW; Glucose Urine UA 3+ g/dL (Negative); Ketones Urine UA NEGATIVE (NEGATIVE); Leukocyte Esterase Urine UA NEGATIVE (NEGATIVE); Nitrite Urine UA NEGATIVE (Negative); Occult Blood Urine UA NEGATIVE (Negative); Protein Urine UA NEGATIVE (Negative); Specific Gravity Urine UA <=1.005 (1.000-1.035); Urobilinogen Urine UA 0.2 E.U./dL (0.2)
[2024-03-10 13:16] LABS: pH Urine UA 5.5 (4.5-8.0)
[2024-03-10 13:51] LABS: Bacteria Urine Moderate (10-30); Culture Indicated Urine Cult Not Indicated; RBC Urine None Seen (0-5/HPF); Squamous Epithelial Cell Urine 0-1 /HPF (0-5/HPF); Urine Volume 10mL (spun); WBC Urine None Seen (0-5/HPF)
== END ==
LOC: LAB 12:54
PROVIDERS: PCP Registered Nurse Diabetes Educator; Referring Provider Registered Nurse Diabetes Educator; Visit Provider Registered Nurse Diabetes Educator
DX: R39.9 Unspecified symptoms and signs involving the genitourinary system (principal)
CPT/HCPCS: 81001

== ENCOUNTER → 2024-06-08 11:30 | Outpatient (CLI) | payer OTHER, SELFPAY ==
[2024-06-08 12:26] LABS: Hematocrit 39.8 % (36-46); Hemoglobin 13.4 g/dL (12.0-16.0); Mean Corpuscular HGB Conc 33.7 % (30-36); Mean Corpuscular Hemoglobin 29.5 PG (26-34); Mean Corpuscular Volume 87.3 fL (80-100); Platelet Count 293 X10^3/uL (150-400); Red Blood Cell Count 4.56 X10^6/uL (4.0-5.2); White Blood Cell Count 8.2 X10^3/uL (4.5-11.0)
[2024-06-08 12:36] LABS: Hemoglobin A1C% w Est Avg Glu 6.8 % (4.0-6.0)
[2024-06-08 12:46] LABS: Alanine Aminotransferase 35 IU/L (<35); Albumin 4.7 g/dL (3.5-5.0); Albumin Globulin Ratio 1.7 (1.0-2.8); Alkaline Phosphatase 77 U/L (38-126); Aspartate Aminotransferase 30 IU/L (14-36); BUN Creatinine Ratio 29.6 (6-22); Bilirubin Total 0.9 mg/dL (0.2-1.3); Blood Urea Nitrogen 21 mg/dL (7-17); Calcium 10.1 mg/dL (8.4-10.2); Carbon Dioxide 18 mmol/L (22-32); Chloride 107 mmol/L (98-107); Cholesterol 121 mg/dL (140-199); Estimated Glomerular Filt Rate > 60 mL/min (>60); Globulin 2.8 g/dL (1.7-4.1); Glucose 184 mg/dL (80-110); HDL Cholesterol 51 mg/dL (40-60); HEMOLYSIS < 15 (0-50); LDL Cholesterol Calculated 39 mg/dL (<100); Potassium 4.4 mmol/L (3.4-5.1); Sodium 139 mmol/L (137-145); Total Protein 7.5 g/dL (6.3-8.2); Triglycerides 155 mg/dL (35-150)
[2024-06-08 13:16] LABS: TSH w/ Reflex to FT4 0.91 uIU/mL (0.47-4.68)
[2024-06-08 14:23] LABS: Creatinine Urine Random 49.62 mg/dL
[2024-06-08 14:30] LABS: Microalbumin Urine Random 0.8 mg/dL (0-1.6)
== END ==
PROVIDERS: PCP Registered Nurse Diabetes Educator; Referring Provider Registered Nurse Diabetes Educator; Visit Provider Registered Nurse Diabetes Educator
DX: E11.9 Type 2 diabetes mellitus without complications (principal); E03.9 Hypothyroidism, unspecified; I10 Essential (primary) hypertension; E78.5 Hyperlipidemia, unspecified; D64.9 Anemia, unspecified
CPT/HCPCS: 36415; 80053; 80061; 82043; 82570; 83036; 84443; 85027

== ENCOUNTER → 2024-06-29 15:14 | Outpatient (CLI) | payer OTHER, SELFPAY ==
--- NOTE | 2024-06-29 15:16 | DI.US.S_ITS ---
PROCEDURE: US PELVIC COMPLETE INDICATIONS: POSTMENOPAUSAL BLEEDING TECHNIQUE: Real-time scanning was performed of the pelvic organs, with image documentation. Additional endovaginal scanning was necessary due to incomplete visualization of the adnexal and endometrial structures by transabdominal scanning. COMPARISON: [facility], , US PELVIC COMPLETE, 03/07/2020, 15:37. FINDINGS: Uterus: Uterus is anteverted and normal in size at 7.2 x 2.2 x 3.4 cm. The myometrium is heterogeneous. The endometrium measures 1.4 mm combined thickness. Small uterine fibroids. There is a right anterior submucosal fibroid measuring 1.1 cm. Right posterior intramural fibroid measuring 1.0 cm. Left anterior intramural fibroid measuring 0.8 cm. Ovaries: Ovaries only seen transabdominally. The right ovary measures 1.4 x 1.3 x 2.4 cm, with a calculated ovarian volume of 2.3 cc. The left ovary measures 2.7 x 1.6 x 2.2 cm, with a calculated ovarian volume of 4.8 cc. The ovaries have a normal sonographic appearance. Less than 12 follicles can be seen in each ovary. No adnexal masses are seen. Other: No pathologic free abdominal or pelvic fluid. IMPRESSION: Endometrium is normal in thickness. Small uterine fibroids as described above. Ovaries are normal in appearance. We strive to produce accurate, complete, and clear reports of imaging services. To assist us in improving patient care, this report was composed using standard report templates and voice recognition software. Therefore, it may contain abnormal punctuation, insertions and/or omissions. Occasional wrong-word or sound-alike substitutions may occur. Though we review the report and make efforts to correct it, we do recommend that the report be read carefully in proper context to recognize any text inaccuracies. Dictated by: Ronal Leiva M.D. on 06/29/2024 at 17:23 Approved by: Ronal Leiva M.D. on 06/29/2024 at 17:25
--- NOTE | 2024-06-29 15:16 | DI.MG.S_ITS ---
MM screening mammo BI: 06/29/2024. BI-RADS: 2 CLINICAL: 64-year old female for bilateral screening mammogram. Tyrer-Cuzick lifetime risk of 8.2%. No personal or first-degree family history of breast cancer. The patient had a prior right breast biopsy. PRIOR EXAMS 06/24/2023, 05/12/2022, 03/27/2021, 03/07/2020, 08/24/2019, 02/09/2019, 07/12/2018, 01/13/2018, 12/16/2017, 11/26/2016, 09/19/2015, 09/11/2014. MAMMOGRAPHY TECHNIQUE: 2D and 3D (tomosynthesis) digital mammographic views obtained, with additional images as needed for full coverage. Current study was also evaluated with a Computer Aided Detection (CAD) system. DENSITY B. There are scattered areas of fibroglandular density. MAMMOGRAPHY FINDINGS Right: Benign-appearing mass noted on the right. There are no suspicious masses, calcifications, or other findings in the breast. Left: No suspicious mass, asymmetry, microcalcification, or other abnormality seen. IMPRESSION: Right * No evidence of malignancy with benign findings. Left * No evidence of malignancy. RECOMMENDATIONS Bilateral * Annual screening mammography. OVERALL ASSESSMENT CATEGORY BI-RADS-2: Benign. The [employer] recommends annual screening mammography beginning at age 40 for women with average risk of breast cancer. ELECTRONICALLY SIGNED: Ori Ambrose M.D. on 06/29/2024 at 07:45:01 PM PT Interpreting Station ID: [id number]
== END ==
PROVIDERS: PCP Registered Nurse Diabetes Educator; Referring Provider Registered Nurse Diabetes Educator; Visit Provider Registered Nurse Diabetes Educator
DX: Z12.31 Encounter for screening mammogram for malignant neoplasm of breast (principal); N95.0 Postmenopausal bleeding; D25.1 Intramural leiomyoma of uterus; D25.0 Submucous leiomyoma of uterus
CPT/HCPCS: 76830; 76856; 77063; 77067

== ENCOUNTER 2024-07-12 07:31 | Day surgery (SDC) | payer OTHER, SELFPAY ==
--- NOTE | 2024-07-12 | PATH_ITS ---
[facility] Accession Number: [id number] No. of containers..01 Tissue . 01 Material submitted: . colon - COLON, ASCENDING POLYP . 01 Diagnosis: ASCENDING COLON POLYP: Tubular adenoma with erosion. MRV 07/16/2024 1344 Local . 01 Electronically signed: . Omar Meraz MD, PhD, Pathologist NPI- [id number] . 01 Gross description: . Received in formalin with two identifiers and ascending colon, are two watson soft tissue fragments, 0.4 x 0.1 x 0.1 cm and 0.9 x 0.9 x 0.7 cm. The largest fragment is bisected. The specimen is submitted entirely in A1. ([id number]) /MRV 07/13/2024 1824 Local . 01 Pathologist provided ICD-10: D12.2 . 01 CPT . 494341 Specimen Comment: A courtesy copy of this report has been sent to [phone] Performed at: [address] [id number] MD Trevon Degroot MD Phone: [phone]
[2024-07-12] MEDS: LACTATED RINGERS 1,000 ML 84 ML IV (08:19)
--- NOTE | 2024-07-12 08:19 | P.HP_ITS ---
History of Present Illness History of Present Illness Date Patient Seen: 07/12/24 Time Patient Seen: 08:20 Chief complaint: Screening Colonoscopy Narrative: Nixon is a 64 year old woman here for colonoscopy. Her last colonoscopy was about 10 years ago. She believes some polyps removed but then she was told that she could have a 10 year interval. [facility] Medical History Type 2 diabetes mellitus without complication Abnormal mammogram of right breast Knee pain (~2014) Diabetes Hyperlipemia Hypertension Colon polyps Chickenpox (~1966) Shoulder pain (2011) Hypothyroidism Surgical History Hx of right breast biopsy History of tonsillectomy (1967) Status post delivery (09/16/95) Family History Grandmother Heart disease Hypertension Hyperlipidemia Mother Age: 82 Diabetes mellitus Hypertension Hyperlipidemia Father No problems noted. 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 ) alcohol intake: former substance use type: does not use Meds Home Medications and Allergies Home Medications Medication Instructions Recorded Confirmed Type ASPIRIN (#ASPIRIN) 325 mg PO HS ##0 07/27/10 07/12/24 History Fish Oil 1,000 mg PO BID ##0 07/27/10 11/16/23 History blood sugar diagnostic (Blood #100 ea 01/27/22 11/16/23 Rx Glucose Test strips) blood-glucose meter #1 ea 01/27/22 11/16/23 Rx lancets (Accu-Chek Softclix #100 ea 01/27/22 11/16/23 Rx Lancets) turmeric 400 mg capsule mg PO 03/23/23 11/16/23 History peg 3350-electrolytes 236 240 ml PO Q10M #4,000 mL 12/20/23 Rx gram-22.74 gram-6.74 gram-5.86 gram solution (Golytely) levothyroxine 88 mcg tablet 88 mcg PO DAILY #90 tabs 06/13/24 Rx losartan 100 1 tab PO DAILY #90 tabs 06/13/24 07/12/24 Rx mg-hydrochlorothiazide 12.5 mg tablet metformin 500 mg tablet,extended 1,000 mg (2 x 500 mg) PO BID #360 06/13/24 07/12/24 Rx release 24 hr tabs rosuvastatin 10 mg tablet 10 mg PO BEDTIME #90 tabs 06/13/24 Rx Allergies Allergy/AdvReac Type Severity Reaction Status Date / Time latex [LATEX] Allergy Mild RASH Verified 07/12/24 08:11 Exam Const General: healthy appearing Resp Effort & Inspection: normal respiratory effort Assessment & Plan Assessment and plan (1) Colon cancer screening: Status: Acute Plan Colonoscopy Time-Based Coding :: [TOTAL MINUTES] spent with patient and on the chart (including review of chart, obtaining history, exam, reviewing outside data, placing orders, documenting exam and treatment plan, and counseling patient) on [DATE]. 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
[2024-07-12 08:30] VITALS: BP 151/83; PULSE 97; RESP 14; TEMP 36.6; O2SAT 99
--- NOTE | 2024-07-12 09:45 | PM.OP.COLON ---
Operative Date/Time/Diagnoses Date of procedure: 07/12/24 Time of procedure: 09:45 Pre-op diagnosis: Colon cancer screening Post-op diagnosis: same Procedure & Clinicians Study performed: Colonoscopy Same procedure as scheduled: Yes Surgeon: Deven Little Procedure Notes Procedure in detail: Surgeon: Deven Little MD Anesthesia: Jc Garrett D.O. Procedure: The patient was brought to the endoscopy suite, placed in left lateral decubitus position. The patient was connected to monitoring devices. A time-out was performed. Sedation was administered. Once the patient was adequately sedated, a digital rectal exam was performed and was normal. The scope was then inserted and advanced to the cecum where the appendiceal orifice was identified and photographed. The scope was then slowly withdrawn over greater than 6 minutes. The mucosa was thoroughly inspected. There was a 1.3 cm polyp ascending colon near the hepatic flexure. It was removed with a cold snare and extracted using the Posada net. We then went back up and injected tattoo ink just distal to the polypectomy site. The scope was retroflexed in the rectum. No other abnormalities were found. The scope was straightened and removed. The patient was awakened and brought to recovery. Scope withdrawal time: 30 minutes Sedation time: 38 minutes EBL: 5 mL Findings: 1.3 cm polyp in the distal ascending colon Post-procedure Disposition: PACU
[2024-07-12 09:49] VITALS: BP 95/66; PULSE 78; RESP 16; TEMP 36.2; O2SAT 96
[2024-07-12 09:55] VITALS: BP 103/65; PULSE 79; RESP 16; O2SAT 98
== END 2024-07-12 10:07 | disposition home or self-care (01) ==
PROVIDERS: PCP Registered Nurse Diabetes Educator; Referring Provider Surgery; Visit Provider Surgery
PROC: 0DJD8ZZ Inspection of Lower Intestinal Tract, Via Natural or Artificial Opening Endoscopic (ICD-10-PCS; CPT 45378; principal; 2024-07-12 08:45)
DX: Z12.11 Encounter for screening for malignant neoplasm of colon (principal); D12.2 Benign neoplasm of ascending colon
CPT/HCPCS: 45381; 45385; J2704

== ENCOUNTER → 2025-01-30 10:16 | Outpatient (CLI) | payer OTHER, SELFPAY ==
[2025-01-30 11:15] LABS: Hemoglobin A1C% w Est Avg Glu 6.7 % (4.0-6.0)
[2025-01-30 11:21] LABS: Alanine Aminotransferase 28 IU/L (<35); Albumin 4.7 g/dL (3.5-5.0); Albumin Globulin Ratio 1.6 (1.0-2.8); Alkaline Phosphatase 67 U/L (38-126); Globulin 2.9 g/dL (1.7-4.1); HEMOLYSIS < 15 (0-50); Total Protein 7.6 g/dL (6.3-8.2)
== END ==
PROVIDERS: PCP Registered Nurse Diabetes Educator; Referring Provider Registered Nurse Diabetes Educator; Visit Provider Registered Nurse Diabetes Educator
DX: E11.9 Type 2 diabetes mellitus without complications (principal); R74.8 Abnormal levels of other serum enzymes
CPT/HCPCS: 36415; 80076; 83036